=== PATIENT | female | born 1990 | race African-American/Black ===

== ENCOUNTER 2017-09-10 23:01 | Emergency (ER) | payer MEDICAID, OTHER ==
[~2017-09-10] VITALS: Ht 162.6 cm; Wt 77.1 kg
[2017-09-10 23:54] VITALS: BP 130/78
[2017-09-11] MEDS ORDERED: KETOROLAC TROMETHAMINE INJ 60 MG/2 ML VIAL IM ONE (00:30)
[2017-09-11] MEDS ORDERED: KETOROLAC TROMETHAMINE INJ 30 MG/ML VIAL ONE (00:39)
== END 2017-09-11 02:45 | disposition home or self-care (01) ==
LOC: ER 23:06
DX: S32.048A Other fracture of fourth lumbar vertebra, initial encounter for closed fracture (principal); S13.4XXA Sprain of ligaments of cervical spine, initial encounter; S33.5XXA Sprain of ligaments of lumbar spine, initial encounter; S20.311A Abrasion of right front wall of thorax, initial encounter; V49.59XA Passenger injured in collision with other motor vehicles in traffic accident, initial encounter; Y93.89 Activity, other specified; Y92.413 State road as the place of occurrence of the external cause; Y99.8 Other external cause status
CPT/HCPCS: 72040-TC; 72100-TC; A4606; J1885; Z7610

== ENCOUNTER 2018-12-20 01:25 | Emergency (ER) | payer MEDICAID, OTHER ==
[~2018-12-20] VITALS: Ht 160 cm; Wt 87.1 kg
--- NOTE | 2018-12-20 02:42 | NUR ---
BIBS. C/L R FOOT PAIN WHILE CLIMBING STAIRS, STEPPED WRONG AND HEARD CRACK 6/10 BURNING THROBBING W/ SWELLING. PT AOX 4 RR EVEN AND UNLABORED. NO SOB NOTED. NO NVD AT THIS TIME. PT WAITING FOR MD JERRY.
--- NOTE | 2018-12-20 03:26 | NUR ---
Pt in pain. MD made aware. verbal order received to give Ibuprophen 400mg PO. Order noted and caried out
[2018-12-20] MEDS ORDERED: IBUPROFEN 400 MG TABLET ONE (03:28)
--- NOTE | 2018-12-20 04:11 | NUR ---
Patient discharged to home in stable condition. Written and verbal after care instructions given. Patient verbalizes understanding of instruction. Pt ambulated with aide of crutches that pt brought herself. Crutches adjustment done and gait training provided
[2018-12-20 04:51] VITALS: BP 114/53
[2018-12-20] MEDS ORDERED: IBUPROFEN 400 MG TABLET PO ONE (05:00)
== END 2018-12-20 04:15 | disposition home or self-care (01) ==
LOC: ER 01:26
DX: S92.354A Nondisplaced fracture of fifth metatarsal bone, right foot, initial encounter for closed fracture (principal); X50.1XXA Overexertion from prolonged static or awkward postures, initial encounter; Y93.39 Activity, other involving climbing, rappelling and jumping off; Y92.89 Other specified places as the place of occurrence of the external cause; Y99.8 Other external cause status
CPT/HCPCS: 73630-TC

== ENCOUNTER 2020-07-27 16:26 | Emergency (ER) | payer OTHER ==
[~2020-07-27] VITALS: Ht 160 cm; Wt 93.0 kg
--- NOTE | 2020-07-27 16:45 | NUR ---
THE PATIENT IS BIB FIRNED FROM HOME FOR C/O DIZZINESS, STS SHE "PASSED OUT" YESTERDAY, DENIES HEAD INJURY 8 WEEK . DENIES ANY PAIN/DISCOMFORT. IN ROOM AIR AND DENIES SOB. RESPIRATION REGULAR AND UNLABORED. ATTACHED TO THE MONITOR. WILL CONTINUE TO MONITOR THE PATIENT.
--- NOTE | 2020-07-27 16:52 | NUR ---
DR CARABALLO AT THE BEDSIDE
[2020-07-27] MEDS ORDERED: IV NS 0.9% 1,000 ML BAG IV ONE (17:00)
[2020-07-27] MEDS ORDERED: ONDANSETRON HCL/PF 4 MG/2 ML VIAL IVP ONE (17:00)
[2020-07-27] MEDS ORDERED: ONDANSETRON HCL/PF 4 MG/2 ML VIAL ONE (17:07)
[2020-07-27 17:23] LABS: BASOPHILS % (AUTO) 0.3 % (0.0-2.0); EOSINOPHILS % (AUTO) 0.5 % (0.0-6.0); HEMATOCRIT 35 % (33-45); HEMOGLOBIN 11.7 g/dL (11.5-14.8); LYMPHOCYTES # (AUTO) 1.3 /CMM (0.8-4.8); LYMPHOCYTES % (AUTO) 17.9 % (20.0-44.0); MEAN CORPUSCULAR HGB CONC 33 g/dl (31.0-36.0); MEAN CORPUSCULAR VOLUME 94 fL (82-100); MONOCYTES # (AUTO) 0.5 /CMM (0.1-1.30); MONOCYTES % (AUTO) 6.9 % (2.0-12.0); NEUTROPHILS # (AUTO) 5.5 /CMM (1.8-8.9); NEUTROPHILS % (AUTO) 74.4 % (43.0-81.0); PLATELET COUNT (AUTO) 215 /CMM (150-450); RED BLOOD CELL COUNT(AUTO) 3.73 MIL/uL (4.0-5.2); WHITE BLOOD COUNT (AUTO) 7.4 K/uL (4.3-11.0)
[2020-07-27 17:33] LABS: CALCIUM, SERUM 9.1 mg/dL (8.5-10.1); CREATININE 0.7 mg/dL (0.6-1.3); POTASSIUM 3.8 mmol/L (3.5-5.1)
--- NOTE | 2020-07-27 18:28 | NUR ---
URINE COLLECTED AND SENT TO THE LAB
[2020-07-27 18:40] LABS: BILIRUBIN,URINE Negative (NEGATIVE); COLOR,URINE YELLOW (YELLOW); LEUKOCYTE ESTERASE ,URINE Negative (NEGATIVE); NITRITE, URINE Negative (NEGATIVE); PH,URINE 6.5 (5.0-8.0); PROTEIN,URINE Negative (NEGATIVE); UGLUCOSE Negative (NEGATIVE); UROBILINOGEN,URINE 0.2 EU/dL (0.2)
--- NOTE | 2020-07-27 19:14 | NUR ---
PT IS medically stable for d/c. IV removed. Catheter intact and site benign. Pressure and 4x4 applied to site. No bleeding noted.Patient discharged to home in stable condition. Written and verbal after care instructions given. Patient verbalizes understanding of instruction.
[2020-07-27 20:36] VITALS: BP 131/75
== END 2020-07-27 20:36 | disposition home or self-care (01) ==
LOC: ER 16:26
DX: O21.8 Other vomiting complicating pregnancy (principal); R94.31 Abnormal electrocardiogram [ECG] [EKG]; Z3A.08 8 weeks gestation of pregnancy
CPT/HCPCS: 36415; 76856; 80048; 81003; 84702; 85025; 87086; 93005; 96361; 96374; 99285; J2405; J7030